=== PATIENT | male | born 1990 | race Caucasian/White ===

== ENCOUNTER 2023-02-28 16:51 | Emergency (ER) | payer OTHER, SELFPAY ==
[2023-02-28 16:57] VITALS: BP 120/71; PULSE 85; RESP 20; TEMP 36.8; O2SAT 97; BMI 31.4
--- NOTE | 2023-02-28 17:37 | ED.GENADUL1 ---
HPI - General Adult General Chief complaint: Urogenital-Male Stated complaint: STD CHECK Time Seen by Provider: 02/28/23 17:07 Source: patient Mode of arrival: walk-in Limitations: no limitations History of Present Illness HPI narrative: Patient is a 32-year-old male who is presenting to the Emergency Room with chief concern of having STD testing secondary to has a new girlfriend and his new girlfriend wants him checked for any infections or STDs before they have any sexual relations. Patient currently has no symptoms of anything. He has no bowel pain, nausea, vomiting. He has no rash or lesions. Patient states that his scrotum itches intermittently, but has been going on for 20 years is a normal male. Nothing acute. Patient has no dysuria, frequency or urgency. Patient has no dysuria, or urinary frequency or urgency. No penile drainage. Patient's past girlfriend has no signs or symptoms of any STD as well. Patient is only here because his girlfriend wants him checked for STD before they have any sexual relations. There is no emergency today. . All systems are negative except as noted/marked. All systems reviewed and otherwise negative. . Nurses note and vital signs reviewed and patient is not hypoxic. General: The patient appears well and in no apparent distress. Patient is resting comfortably on cart. Patient is not toxic, lethargic, or listless. Patient smells very poorly of body odor, poor hygiene, gross smelling feet. Patient has no acute infection, redness or lesions or open sores to his feet, patient just has extremely poor body odor and body hygiene. She was educated on this at bedside by myself. Skin: Warm, dry, no pallor noted. There is no rash noted. No petechiae, purpura. Head: Normocephalic, atraumatic Eye: Normal conjunctiva, no drainage, EOMI. PERRL Ears, Nose, Mouth, and Throat: oral mucosa is moist. Cardiovascular: Regular Rate and Rhythm, no murmur, gallop, rub Respiratory: Patient is in no distress, no accessory muscle use, lungs are clear to auscultation, no wheezing, rales or rhonchi Back: non-tender, GI: soft, no tenderness : Patient denies any rash, lesion, sores, dysuria, penile drainage. Musculoskeletal: Patient has full range of motion of all of the extremities, no motor, sensory, or focal neurological deficits Neurological: A&O x3, normal speech Psychiatric: Cooperative Related Data Allergies Allergy/AdvReac Type Severity Reaction Status Date / Time Penicillins Allergy Severe shortness Verified 02/28/23 16:57 of breath [facility] Medical History (Updated 02/28/23 @ 17:36 by Jose Vick MD) Surgical History (Updated 02/28/23 @ 17:07 by Miguel Brooke) Social History Smoking status: Heavy tobacco smoker Exam Constitutional Vital Signs, click to edit/add: Last Vital Signs Temp 98.3 F 02/28/23 16:57 Pulse 85 02/28/23 16:57 Resp 20 02/28/23 16:57 BP 120/71 H 02/28/23 16:57 Pulse Ox 97 02/28/23 16:57 O2 Del Method Room Air 02/28/23 16:57 Course Vital Signs Vital signs: Vital Signs Temperature 98.3 F 02/28/23 16:57 Pulse Rate 85 02/28/23 16:57 Respiratory Rate 20 02/28/23 16:57 Blood Pressure 120/71 H 02/28/23 16:57 Pulse Oximetry 97 02/28/23 16:57 Oxygen Delivery Method Room Air 02/28/23 16:57 Temperature 98.3 F 02/28/23 16:57 Pulse Rate 85 02/28/23 16:57 Respiratory Rate 02/28/23 16:57 Blood Pressure 120/71 H 02/28/23 16:57 Pulse Oximetry 97 02/28/23 16:57 Oxygen Delivery Method Room Air 02/28/23 16:57 Medical Decision Making [facility] Narrative Medical decision making narrative: Patient was educated on body hygiene, body odor, follows coming from his feet with no infections. Patient was also educated on the appropriate use of the emergency department. Patient has no PCP, no health insurance. Patient is here because his girlfriend wants him to be checked for STDs before that sexual relations. Patient was told there is nothing appropriate about his visits the emergency room today. Patient has no indication for any testing of any infection has no symptoms of anything. No rash, drainage, dysuria, no sourcce or exposure to any STD. Patient had very clear instructions written on his paperwork as well concerning this. Patient is established PCP without clinic. Patient follow-up with free clinic or the health department if he requests additional testing. Patient understands this. Patient actually thing me for being very forward and honest with him and explained the process of the emergency room. Discharge Plan Discharge Chief Complaint: Urogenital-Male Clinical Impression: Visit for [facility] Patient Disposition: Home, Self-Care Time of Disposition Decision: 17:37 Condition: Good Mode of Transportation: Private Vehicle Instructions: Male Condom Use (ED), Safe Sex Practices (ED), Sexually Transmitted Diseases in Adolescents (ED), Safe Sex Practices for Adolescents (ED) Additional Instructions: In emergency room does not perform STD checking on demand. You have no symptoms of any STD at this time, there is no indication for any testing in the emergency room. Follow-up with the health department or a free clinic if you desire. Be more conscious of your body hygiene. You may establish a PCP at the health department as well. Education on STDs and safe sex practices was given to you for educational purposes only. Stand Alone Forms: Portal Instructions Referrals: Physician,Non-Staff, MD [Primary Care Provider] - 1 week Discharge Date/Time: 02/28/23 17:44
== END 2023-02-28 17:44 | disposition home or self-care (01) ==
PROVIDERS: Emergency Provider Emergency Medicine
DX: Z00.00 Encounter for general adult medical examination without abnormal findings (principal); F17.210 Nicotine dependence, cigarettes, uncomplicated
CPT/HCPCS: 99282